=== PATIENT | male | born 1985 | race Hispanic/Latino ===

== ENCOUNTER 2021-12-25 14:01 | Emergency (ER) | payer SELFPAY ==
[2021-12-25] MEDS ORDERED: Lidocaine 1% (PF) 30 ML VIAL ONE (16:35)
== END 2021-12-25 17:30 | disposition home or self-care (01) ==
LOC: ERS 14:01
DX: L60.0 Ingrowing nail (principal); F17.210 Nicotine dependence, cigarettes, uncomplicated
CPT/HCPCS: 11750; J2001